=== PATIENT | male | born 1960 | race Caucasian/White ===

== ENCOUNTER 2017-03-18 09:06 | Emergency (ER) | payer OTHER, MEDICAID ==
--- NOTE | 2017-03-18 09:15 | CPEKG ---
Heart Rate: 78 RR Interval: 769 P-R Interval: 127 QRSD Interval: 88 QT Interval: 376 QTC Interval: 429 P [place]: 0 QRS [place]: 61 T Wave [place]: 66 EKG Severity - NORMAL ECG - EKG Impression: SINUS RHYTHM EKG Impression: Difficult to interpret baseline Electronically Signed By: Artis Romero 18-Mar-2017 09:18:27
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
[2017-03-18 09:21] LABS: PLATELET COUNT 294 10^3/uL (150-400)
--- NOTE | 2017-03-18 09:24 | CPEKG ---
Heart Rate: 76 RR Interval: 789 P-R Interval: 132 QRSD Interval: 76 QT Interval: 400 QTC Interval: 450 P [place]: 43 QRS [place]: 65 T Wave [place]: 66 EKG Severity - NORMAL ECG - EKG Impression: SINUS RHYTHM Electronically Signed By: Artis Romero 18-Mar-2017 09:41:10
[2017-03-18 09:32] LABS: INR 0.87 (0.83-1.16); PROTIME(PATIENT) 12.1 SEC (12.0-15.0)
[2017-03-18] MEDS ORDERED: IPRATROPIUM/ALBUTEROL 3 ML DEYVIAL IH ONE (10:04)
[2017-03-18] MEDS ORDERED: AZITHROMYCIN 250 MG TAB PO ONE (10:05)
[2017-03-18 10:53] VITALS: BP 127/74; PULSE 83; RESP 18; TEMP 98.2; O2SAT 98
== END 2017-03-18 10:54 | disposition home or self-care (01) ==
LOC: EDUNIT#
DX: J20.9 Acute bronchitis, unspecified (principal); F17.200 Nicotine dependence, unspecified, uncomplicated; I10 Essential (primary) hypertension; Z79.82 Long term (current) use of aspirin; Z91.040 Latex allergy status; Z95.5 Presence of coronary angioplasty implant and graft

== ENCOUNTER 2017-09-05 10:19 | Inpatient (IN) | payer MEDICAID, OTHER ==
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
[2017-09-05 11:06] LABS: PLATELET COUNT 244 10^3/uL (150-400)
[2017-09-05 11:14] LABS: INR 0.87 (0.83-1.16); PROTIME(PATIENT) 12.1 SEC (12.0-15.0)
[2017-09-05] MEDS ORDERED: ceFAZolin 2 GM/DEXTROSE 100 ML IV ONE (12:15)
[2017-09-05] MEDS ORDERED: ONDANSETRON 4 MG/2 ML VIAL IVP PRN ×2 (12:19→15:43)
[2017-09-05] MEDS ORDERED: LR 1,000 ML IV SCH (12:30)
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
[2017-09-05] MEDS ORDERED: BUPIVACAINE/EPI 0.5% 30 ML SDV ONE (13:39)
[2017-09-05] MEDS ORDERED: MIDAZOLAM 2 MG/2 ML VIAL IVP ONE (14:40)
--- NOTE | 2017-09-05 14:41 | PDANEPAE ---
ANE Past Medical History - Pulmonary History Hx Oxygen in Use at Home: No Hx Sleep Apnea: No - Endocrine History Hx Diabetes: No ANE Review of Systems Review of Systems: ANE Patient History - Allergies Allergies/Adverse Reactions: latex Allergy (Verified 03/18/17 09:18) - Home Medications Home Medications: Aspirin [Aspirin 81mg (*)] 81 mg PO DAILY 09/05/17 [Last Taken 09/05/17] Carvedilol [Coreg (*)] 3.125 mg PO BIDMEAL 09/05/17 [Last Taken 09/05/17] Cyclobenzaprine [Flexeril 10 MG (*)] 10 mg PO HS PRN 09/05/17 [Last Taken ] Gabapentin [Neurontin 100 MG (*)] 100 mg PO QID 09/05/17 [Last Taken Unknown] Lisinopril/Hctz 20/12.5MG [Zestoretic/Prinzide 20/12.5MG (*)] 1 ea PO DAILY [Last Taken 09/05/17] Rosuvastatin Calcium [Crestor 40mg (*)] 40 mg PO HS 09/05/17 [Last Taken ] amLODIPine BESYLATE [Norvasc 10 mg (*)] 10 mg PO DAILY 09/05/17 [Last Taken Unknown] - NPO status NPO Since - Liquids (Date): 09/05/17 NPO Since - Liquids (Time): 06:00 NPO Since - Solids (Date): 09/05/17 NPO Since - Solids (Time): 06:00 - Smoking Hx Smoking Status: Current some day smoker - Alcohol Use Alcohol Use: Sober ANE Labs/Vital Signs - Labs Result Diagrams: 09/05/17 10:55 09/05/17 10:55 - Vital Signs Blood Pressure: 138/95 Heart Rate: 76 Respiratory Rate: 16 O2 Sat (%): 94 Height: 172.72 cm Weight: 76.204 kg ANE Physical Exam - Airway Neck exam: FROM Mallampati Score: Class 2 Mouth exam: dentures - Pulmonary Pulmonary: no respiratory distress - Cardiovascular Cardiovascular: regular rate and rhythym - ASA Status ASA Status: III ANE Anesthesia Plan Anesthesia Plan: GA w LMA
[2017-09-05] MEDS ORDERED: MIDAZOLAM 2 MG/2 ML VIAL ONE (14:42)
[2017-09-05] MEDS ORDERED: fentaNYL 100 MCG/2 ML INJ ONE ×3 (14:43→16:10)
[2017-09-05] MEDS ORDERED: PROPOFOL 200 MG/20 ML VIAL ONE (14:44)
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
[2017-09-05] MEDS ORDERED: HYDROCODONE/APAP 5/325 TAB PO PRN (15:41)
[2017-09-05] MEDS ORDERED: TEMAZEPAM 15 MG CAP PO PRN (15:41)
[2017-09-05] MEDS ORDERED: ACETAMINOPHEN 325 MG TAB PO PRN (15:41)
[2017-09-05] MEDS ORDERED: MEPERIDINE 25 MG/0.5 ML AMP ONE (15:42)
[2017-09-05] MEDS ORDERED: MEPERIDINE 25 MG/0.5 ML AMP IVP PRN (15:43)
[2017-09-05] MEDS ORDERED: ALBUTEROL 3 ML DEYVIAL IH PRN (15:43)
[2017-09-05] MEDS ORDERED: NALOXONE HCL 0.4 MG/ML INJ IVP PRN (15:43)
[2017-09-05] MEDS ORDERED: fentaNYL 100 MCG/2 ML INJ IVP PRN (15:43)
[2017-09-05] MEDS ORDERED: D5W 1/2 NS 1,000 ML IV SCH (15:45)
--- NOTE | 2017-09-05 15:45 | POSTANESTH ---
Post Anesthetic Evaluation Cardiovascular Status: Similar to Pre-Op Cond Respiratory Status: Similar to Pre-op Cond. Level of Consciousness/Mental Status: Mildly Sleepy, Arousable Pain Control: Adequate, Prn Tx Ordered Nausea/Vomiting Control: Adequate, Prn Tx Ordered Complications Possibly Related to Anesthesia: None Noted
--- NOTE | 2017-09-05 15:48 | POSTOPPROG ---
Post Op Note Date of Operation: 09/05/17 Surgeon: Onesimo Gann Anesthesiologist: ann Anesthesia: GET(General Endotracheal) Pre-op Diagnosis: Lt femoral neck fx Post-op Diagnosis: same Procedure: PCP Lt hip Inf/Abcess present in the surg proc area at time of surgery?: No EBL: Minimal Complications: none
[2017-09-05] MEDS: CARVEDILOL 3.125 MG TAB PO SCH (17:18)
[2017-09-05] MEDS: OXYCODONE/APAP 5/325 TAB PO PRN (17:18)
[2017-09-05] MEDS: GABAPENTIN 100 MG CAP PO SCH ×2 (17:18→21:42)
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
[2017-09-05] MEDS: ROSUVASTATIN CALCIUM 40 MG TAB PO SCH (21:42)
[2017-09-05] MEDS: CYCLOBENZAPRINE 10 MG TAB PO PRN (21:42)
[2017-09-06] MEDS: GABAPENTIN 100 MG CAP PO SCH ×4 (05:47→21:46)
[2017-09-06] MEDS: OXYCODONE/APAP 5/325 TAB PO PRN ×3 (09:10→21:55)
[2017-09-06] MEDS: CARVEDILOL 3.125 MG TAB PO SCH ×2 (09:11→17:15)
[2017-09-06] MEDS: LISINOPRIL/HCTZ 20/12.5MG 1 EA TAB PO SCH (09:11)
[2017-09-06] MEDS: ASPIRIN EC 325 MG TAB PO SCH (09:11)
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
--- NOTE | 2017-09-06 12:26 | SOAPPROG ---
SOAP Progress Note Assessment/Plan: Assessment: Plan: 09/06/17 12:24 POD#1 PCP lT femoral neck ASA 325 x 21 days PT/OT Subjective: slept o/n pain controlled Objective: Dressing c/d/i calf soft 5/5 df/pf 2+ dp/tp pulses Vital Signs Temp Pulse Resp BP Pulse Ox 36.4 C 74 15 112/74 91 L 09/06/17 12:00 09/06/17 12:00 09/06/17 12:00 09/06/17 12:00 09/06/17 12:00 09/05/17 09/06/17 09/07/17 05:59 05:59 05:59 Intake Total 1990 Output Total 770 500 Balance 1220 -500 PT 12.1 SEC (12.0-15.0) 09/05/17 10:55 INR 0.87 (0.83-1.16) 09/05/17 10:55 ICD10 Worksheet Patient Problems: Problems Problem Status Onset Fracture of femoral neck, left Acute
[2017-09-06] MEDS: ROSUVASTATIN CALCIUM 40 MG TAB PO SCH (21:46)
[2017-09-06] MEDS: CYCLOBENZAPRINE 10 MG TAB PO PRN (21:55)
[2017-09-07] MEDS: GABAPENTIN 100 MG CAP PO SCH ×4 (05:38→22:46)
[2017-09-07] MEDS: OXYCODONE/APAP 5/325 TAB PO PRN ×3 (05:38→22:46)
[2017-09-07] MEDS: LISINOPRIL/HCTZ 20/12.5MG 1 EA TAB PO SCH (09:24)
[2017-09-07] MEDS: ASPIRIN EC 325 MG TAB PO SCH (09:25)
[2017-09-07] MEDS: CARVEDILOL 3.125 MG TAB PO SCH ×2 (09:25→17:43)
--- NOTE | 2017-09-07 12:59 | SOAPPROG ---
DANIEL Progress Note Assessment/Plan: Assessment: Pt is POD#2 s/p PCP IT femoral neck. He is doing well with improvements in pain. He has been up with physical therapy and has been toe touch weight bearing with the assistance of walker and crutches. PE: Dressing c/d/i calf soft without pain to compression 5/5 df/pf 2+ dp/tp pulses Plan: We will plan for discharge tomorrow to [facility]. He will continue Aspirin x 21 days post op. He is to remain toe touch weight bearing with assistance of walker or crutches for the next 6 weeks. He will follow up in our office 7-10 days post op for wound check and repeat radiographs. 09/07/17 12:55 Objective: Vital Signs Temp Pulse Resp BP Pulse Ox 36.8 C 77 16 88/52 L 90 L 09/07/17 12:00 09/07/17 12:00 09/07/17 12:00 09/07/17 12:00 09/07/17 12:00 09/06/17 09/07/17 09/08/17 05:59 05:59 05:59 Intake Total 1989 1500 Output Total 770 2500 Balance 1220 -1000 PT 12.1 SEC (12.0-15.0) 09/05/17 10:55 INR 0.87 (0.83-1.16) 09/05/17 10:55 ICD10 Worksheet Patient Problems: Problems Problem Status Onset Fracture of femoral neck, left Acute
--- NOTE | 2017-09-07 16:06 | ASMTCMCOM ---
CM Note CM Note Notes: The wc pt has in room may not work, he called [facility] and found one and will see if its available tomorrow because that is the soonest he and/or a friend can get to pick it up. Pt has an appointment with his PCP at [facility] scheduled 09/11/17. Pt referred to [facility]. Pt likely d/c tomorrow. CM to follow. D/c plan of care: Back to [facility] Date Signed: 09/07/2017 04:05 PM Electronically Signed By:DEYVI Roberts
[2017-09-07] MEDS: CYCLOBENZAPRINE 10 MG TAB PO PRN (22:46)
[2017-09-07] MEDS: ROSUVASTATIN CALCIUM 40 MG TAB PO SCH (22:46)
[2017-09-08] MEDS: GABAPENTIN 100 MG CAP PO SCH ×2 (06:19→11:28)
[2017-09-08] MEDS: LISINOPRIL/HCTZ 20/12.5MG 1 EA TAB PO SCH (08:05)
[2017-09-08] MEDS: ASPIRIN EC 325 MG TAB PO SCH (08:05)
[2017-09-08] MEDS: CARVEDILOL 3.125 MG TAB PO SCH (08:05)
[2017-09-08] MEDS: CYCLOBENZAPRINE 10 MG TAB PO PRN (08:05)
[2017-09-08 08:06] VITALS: BP 120/78
[2017-09-08] MEDS ORDERED: POLYETHYLENE GLYCOL 3350 17 GM PKT PO SCH (12:45)
[2017-09-08] MEDS ORDERED: MAGNESIUM HYDROXIDE 30 ML UDCUP PO SCH (12:45)
--- NOTE | 2017-09-08 14:23 | PDIAF ---
- Diagnosis Diagnosis: Right femur fracture Code Status: Full Code - Medication Management Discharge Medications: Medications to Continue on Transfer Gabapentin [Neurontin 100 MG (*)] 100 mg PO QID 09/05/17 [Last Taken Unknown] Lisinopril/Hctz 20/12.5MG [Zestoretic/Prinzide 20/12.5MG (*)] 1 ea PO DAILY [Last Taken 09/05/17] Rosuvastatin Calcium [Crestor 40mg (*)] 40 mg PO HS 09/05/17 [Last Taken ] amLODIPine BESYLATE [Norvasc 10 mg (*)] 10 mg PO DAILY 09/05/17 [Last Taken Unknown] Aspirin EC [Aspirin EC 325 mg (*)] 325 mg PO DAILY tab 09/08/17 [Last Taken Unknown] oxyCODONE/APAP 5/325 [Percocet 5/325 (*)] 1 - 2 tab PO Q3HRS PRN tab 09/08/17 [ Last Taken Unknown] Discharge Medications: Refer to the Discharge Home Medication list for PRN reason. PICC Care - Routine: N/A - Orders Services needed: Physical Therapy, Occupational Therapy Diet Recommendation: no restrictions on diet Diet Texture: Regular Texture Diet Arpan Stockings Discontinue Date: ARPAN hose Wound Care Instructions: Reinforce dressing as needed Sutures/Ricki Site: Keep incisions clean and dry Activity/Weight Bearing Restrictions: toe touch weight bearing LLE Additional Instructions: aspirin 325 mg for 21 days - Follow Up Care Current Providers and Referrals: Onesimo Gann MD [Medical Doctor] - Patient,NotPresent [Primary Care Provider] - As per Instructions
--- NOTE | 2017-09-08 16:40 | ASMTLACE ---
LACE Length of stay for Answers: 3 days current admission Acuity / Level of Answers: Yes Care: Did the patient have an inpatient admission? Comorbidities - select Answers: Coronary Artery Disease all that apply # of Emergency department Answers: 1-2 visits in the last 6 months Social determinants Answers: Homelessness (street, senior care) Score: 12 Date Signed: 09/08/2017 04:39 PM Electronically Signed By:DEYVI Roberts
--- NOTE | 2017-09-08 16:42 | ASMTCMCOM ---
CM Note CM Note Notes: Today pt wants to d/c to SNF. Pt adamant he stay in [facility], is accepted at [facility]. Orders sent in Allflripts. ENDY Lama called report. Margarita with BM scheduled wc transport for 1600 but the BM driver starting gate came early. Date Signed: 09/08/2017 04:41 PM Electronically Signed By:DEYVI Roberts
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
[2017-09-09] MEDS ORDERED: LACTULOSE 20 GM/30 ML UDCUP PO SCH (09:00)
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
== END 2017-09-08 15:17 | DRG 482 ==
LOC: EDUNIT# → OBSVTOIN 12:20 → F3N 16:53
PROVIDERS: ADMIT Orthopaedic Surgery; ATTEND Orthopaedic Surgery
PROC: 0QS734Z Reposition Left Upper Femur with Internal Fixation Device, Percutaneous Approach (ICD-10-PCS; principal; 2017-09-05 14:30)
DX: S72.042A Displaced fracture of base of neck of left femur, initial encounter for closed fracture (principal); V18.0XXA Pedal cycle driver injured in noncollision transport accident in nontraffic accident, initial encounter; I10 Essential (primary) hypertension; E78.00 Pure hypercholesterolemia, unspecified; I25.10 Atherosclerotic heart disease of native coronary artery without angina pectoris; Z72.0 Tobacco use; Z95.5 Presence of coronary angioplasty implant and graft
CPT/HCPCS: 97116-GP; 97161-GP; 97165-GO; 97530-GP; 97535-GO; C1713; G8978-GP-CJ; G8979-GP-CI; G8987-GO-CJ; G8988-GO-CI; J0690; J2175; J2250; J2270; J2405; J2704; J3010